=== PATIENT | female | born 1965 | race Caucasian/White ===

== ENCOUNTER 2022-10-31 17:37 | Emergency (ER) | payer OTHER, SELFPAY ==
--- NOTE | ~2022-10-31 | CT_ITS ---
EXAMINATION: CT HEAD WITHOUT CONTRAST CLINICAL INFORMATION: Weakness, speech difficulty, confusion. COMPARISON: None TECHNIQUE: Contiguous axial imaging was performed from the skull base to vertex without intravenous administration of contrast. This CT examination was performed using dose optimization techniques as appropriate, variously including the following: *Automated exposure control *Adjustment of mA and/or kV according to patient size (this includes techniques or standardized protocols for targeted exams where dose is matched to indication/reason for exam; i.e. extremities or head) *Use of iterative reconstruction technique DLP: 576 mGy-cm FINDINGS: There is no evidence of acute intracranial hemorrhage or edematous territorial infarction. A few foci of hypoattenuation in the periventricular and deep white matter are consistent with mild microangiopathy. Wei-white matter differentiation is preserved. Proportional prominence of the ventricles and sulcal spaces. No evidence for obstructive hydrocephalus. No abnormal mass effect or midline shift. No extra-axial fluid collections. No acute soft tissue or osseous abnormalities. The mastoid air cells and paranasal sinuses are clear. CT/CT head/brain wo IV con IMPRESSION: No evidence of acute intracranial hemorrhage or edematous territorial infarction.
[2022-10-31 17:39] VITALS: BP 144/96; PULSE 89; RESP 18; TEMP 36.7; O2SAT 97; BMI 29.1
--- NOTE | 2022-10-31 17:39 | ED_ITS ---
HPI - Neuro Symptoms/Deficit General Chief Complaint: Neuro Symptoms/Deficit <Rosangela Pedroza NP - Last Filed: 11/06/22 11:09> Stated Complaint: R/O TIA? Sent by Primary <Rosangela Pedroza NP - Last Filed: 11/06/22 11:09> Time Seen by Provider: 10/31/22 20:22 <Rosangela Pedroza NP - Last Filed: 11/06/22 11:09> Source: patient <Manuel Patel MD - Last Filed: 10/31/22 21:06> Mode of arrival: ambulatory <Manuel Patel MD - Last Filed: 10/31/22 21:06> Limitations: no limitations <Manuel Patel MD - Last Filed: 10/31/22 21:06> History of Present Illness HPI Narrative: 57-year-old female with history of hypertension presents with 3 days of difficulty concentrating, confusion, word-finding difficulties. Her symptoms have been intermittent. At times her symptoms have been described as severe specifically 2 days ago. There is no clear relieving or exacerbating features. She denies any headache, vision changes. She has chronic right upper extremity numbness and tingling from a known spinal stenosis from which she has had 3 injections but that has not significantly changed. She does get occasional weakness associated with that as well. She denies any new focal neurologic deficits. She does report a significant amount of stress at work where their shortage is in colleagues, stress at home where her home is being sold, she has a care provider. Her symptoms are also associated with some anxiety but anxiety is in SOB causing her symptoms. She has never had such symptoms before. Patient denies any fevers, chills, nausea, vomiting, diarrhea, urinary complaints, chest pain or shortness of breath. <Manuel Patel MD - Last Filed: 10/31/22 21:06> Related Data Home Medications: Previous Rx's Medication Instructions Recorded hydroxyzine HCl 25 mg tablet 25 mg PO TID PRN anxiety #14 tabs 10/31/22 <Rosangela Pedroza NP - Last Filed: 11/06/22 11:09> Allergies/Adverse Reactions: Allergies Allergy/AdvReac Type Severity Reaction Status Date / Time clindamycin [CLINDAMYCIN] Allergy Unknown HIVES Verified 10/31/22 17:39 levofloxacin [From LEVAQUIN] Allergy Unknown UNKNOWN Verified 10/31/22 17:39 zolpidem [ZOLPIDEM] Allergy Unknown UNKNOWN Verified 10/31/22 17:39 amlodipine [From NORVASC] AdvReac Unknown COUGH, Verified 10/31/22 17:39 WATER RETENTION <Rosangela Pedroza NP - Last Filed: 11/06/22 11:09> [facility] Social History Social History: Social History Advance Directives: Yes Advance Directives Information Provided: No Advance Directives on File: No <Rosangela Pedroza NP - Last Filed: 11/06/22 11:09> Physical Exam Vital Signs: Vital Signs: Last Vital Signs Temp 98.0 F 10/31/22 17:39 Pulse 79 10/31/22 20:26 Resp 16 10/31/22 20:26 BP 159/76 H 10/31/22 20:26 Pulse Ox 98 10/31/22 20:26 O2 Del Method Room Air 10/31/22 20:26 BMI result Body Mass Index 29.1 <Rosangela Pedroza NP - Last Filed: 11/06/22 11:09> Vital Signs: Last Vital Signs Temp 98.0 F 10/31/22 17:39 Pulse 79 10/31/22 20:26 Resp 16 10/31/22 20:26 BP 159/76 H 10/31/22 20:26 Pulse Ox 98 10/31/22 20:26 O2 Del Method Room Air 10/31/22 20:26 BMI result Body Mass Index 29.1 <Manuel Patel MD - Last Filed: 10/31/22 21:06> GEN: Well developed, no acute distress, alert, oriented HEENT: Normocephalic, atraumatic, normal external ears, nose appears normal, no oropharyngeal edema or exudates Eyes: Normal to appearance Neck: Supple, no lymphadenopathy Respiratory: Talks in complete sentences, no respiratory distress, clear to auscultation bilaterally Cardiovascular: Regular rate and rhythm, no murmurs rubs or gallops Abdomen: Soft, nontender, nondistended, no guarding, no rebound Back: No CVA tenderness Extremities: No clubbing cyanosis or edema Neurologic: No focal neurologic deficits, cranial nerves 2-12 intact, strength is 5/5 bilaterally, gait normal, negative pronator drift, no word-finding difficulties Skin: No rash <Manuel Patel MD - Last Filed: 10/31/22 21:06> Course Course Course Narrative: This is a rapid medical exam. Deferred additional HPI, ROS, PE to primary provider. 57 yo female with history of anxiety, depression, HTN, HLD here w/ reports of right hand weakness, feels confused, difficulty with expressing her words since Friday. Will obtain labs, CT head, EKG, POC, covid screen. VSS <Rosangela Pedroza NP - Last Filed: 11/06/22 11:09> Reevaluation(s) Reevaluation #1: patient has f/u with PMD next week, discussed results and plan <Manuel Patel MD - Last Filed: 10/31/22 21:06> Time: 21:06 <Manuel Patel MD - Last Filed: 10/31/22 21:06> Medical Decision Making Medical Decision Making MDM Narrative: 57-year-old female presents with a constellation of symptoms including word-finding difficulties, concentration problems, confusion. Her examination is nonfocal. She is slightly hypertensive but does have a history of hypertension. She denies any chest pain, shortness of breath or other systemic symptoms. Patient does report a significant amount of stress in her life. Patient has never had symptoms similar to this in the past. A broad differential diagnosis could include stress, anxiety, TIA, CVA, glycemic related issue, thyroid dysfunction. Patient will have a CT scan of the head, EKG, laboratory analysis and re-evaluation. <Manuel Patel MD - Last Filed: 10/31/22 21:06> Differential Diagnosis Differential Diagnoses: The differential diagnosis associated with the presentation includes (Confusional state, anxiety, depression, stress, adjustment reaction, mood disorder, TIA, CVA, Lyme disease) <Manuel Patel MD - Last Filed: 10/31/22 21:06> Brief confusional state <Manuel Patel MD - Last Filed: 10/31/22 21:06> Admission/Observation Consideration of admission/observation: Escalation of care including admission/observation considered <Manuel Patel MD - Last Filed: 10/31/22 21:06> Lab Data [facility] Lab Attestation statement: I reviewed the patient's lab results. <Manuel Patel MD - Last Filed: 10/31/22 21:06> Result Diagrams: 10/31/22 18:05 10/31/22 18:05 <Rosangela Pedroza NP - Last Filed: 11/06/22 11:09> Labs: Lab Results 10/31/22 10/31/22 10/31/22 Range/Units 18:05 18:05 18:05 WBC 7.7 (4.8-10.8) X10*3/uL RBC 5.15 (4.20-5.50) X10*6/uL Hgb 14.7 (12.0-16.0) g/dl Hct 44.0 (37.0-47.0) % MCV 85.4 (80.0-98.0) fL MCH 28.5 (27.0-33.0) pg MCHC 33.4 (31.0-35.0) g/dl RDW 13.7 (11.0-16.0) % Plt Count 319 (160-400) X10*3/uL MPV 11.9 (9.4-12.3) fL Immature Gran % (Auto) 0.3 (0.0-0.4) % Neut % (Auto) 57.0 (45-73) % Lymph % (Auto) 34.4 (20-40) % Winston % (Auto) 6.1 (2-11) % Eos % (Auto) 1.6 (0-4) % Baso % (Auto) 0.6 (0-2) % Lymph # (Auto) 2.7 (1.2-4.9) X10*3/uL Winston # (Auto) 0.5 (0.1-1.2) X10*3/uL Eos # (Auto) 0.1 (0.0-0.4) X10*3/uL Baso # (Auto) 0.1 (0.0-0.2) X10*3/uL Abs Immat Gran (auto) 0.02 (0.00-0.03) X10*3/uL Absolute Neuts (auto) 4.4 (2.0-8.3) x10*3/uL Absolute Nucleated RBC 0.000 (0.0-0.012) X10*3/uL Nucleated RBC % (auto) 0.0 (0.0-0.2) /100WBC PT (10.0-13.1) SEC INR (0.9-1.1) Sodium 139 (135-145) mmol/L Potassium 3.4 (3.3-5.1) mmol/L Chloride 103 (96-108) mmol/L Carbon Dioxide 27 (22-29) mmol/L Anion Gap 12 (12-20) BUN 23 H (9-16) mg/dL Creatinine 0.83 (0.5-1.4) mg/dL Estim Creat Clear Calc 83.5 Estimated GFR > 60 Random Glucose 96 (60-115) mg/dL Calcium 9.2 (8.4-10.2) mg/dL Magnesium 2.1 (1.6-2.6) mg/dL Total Bilirubin 0.4 (0.0-1.0) mg/dL Direct Bilirubin 0.1 (0.0-0.5) mg/dL AST 19 (5-31) U/L ALT 18 (0-31) U/L Alkaline Phosphatase 76 (39-117) U/L Troponin I High Sens < 2.7 (<3.5-17.0) ng/L Total Protein 7.0 (6.5-8.0) g/dL Albumin 4.1 (3.5-5.0) g/dL COVID-19 (LISA) (Negative) COVID-19 Clin Com 10/31/22 10/31/22 Range/Units 18:05 18:05 WBC (4.8-10.8) X10*3/uL RBC (4.20-5.50) X10*6/uL Hgb (12.0-16.0) g/dl Hct (37.0-47.0) % MCV (80.0-98.0) fL MCH (27.0-33.0) pg MCHC (31.0-35.0) g/dl RDW (11.0-16.0) % Plt Count (160-400) X10*3/uL MPV (9.4-12.3) fL Immature Gran % (Auto) (0.0-0.4) % Neut % (Auto) (45-73) % Lymph % (Auto) (20-40) % Winston % (Auto) (2-11) % Eos % (Auto) (0-4) % Baso % (Auto) (0-2) % Lymph # (Auto) (1.2-4.9) X10*3/uL Winston # (Auto) (0.1-1.2) X10*3/uL Eos # (Auto) (0.0-0.4) X10*3/uL Baso # (Auto) (0.0-0.2) X10*3/uL Abs Immat Gran (auto) (0.00-0.03) X10*3/uL Absolute Neuts (auto) (2.0-8.3) x10*3/uL Absolute Nucleated RBC (0.0-0.012) X10*3/uL Nucleated RBC % (auto) (0.0-0.2) /100WBC PT 10.3 (10.0-13.1) SEC INR 0.9 (0.9-1.1) Sodium (135-145) mmol/L Potassium (3.3-5.1) mmol/L Chloride (96-108) mmol/L Carbon Dioxide (22-29) mmol/L Anion Gap (12-20) BUN (9-16) mg/dL Creatinine (0.5-1.4) mg/dL Estim Creat Clear Calc Estimated GFR Random Glucose (60-115) mg/dL Calcium (8.4-10.2) mg/dL Magnesium (1.6-2.6) mg/dL Total Bilirubin (0.0-1.0) mg/dL Direct Bilirubin (0.0-0.5) mg/dL AST (5-31) U/L ALT (0-31) U/L Alkaline Phosphatase (39-117) U/L Troponin I High Sens (<3.5-17.0) ng/L Total Protein (6.5-8.0) g/dL Albumin (3.5-5.0) g/dL COVID-19 (LISA) Negative (Negative) COVID-19 Clin Com See Note <Rosangela Pedroza NP - Last Filed: 11/06/22 11:09> Lab Results 10/31/22 10/31/22 10/31/22 Range/Units 18:05 18:05 18:05 WBC 7.7 (4.8-10.8) X10*3/uL RBC 5.15 (4.20-5.50) X10*6/uL Hgb 14.7 (12.0-16.0) g/dl Hct 44.0 (37.0-47.0) % MCV 85.4 (80.0-98.0) fL MCH 28.5 (27.0-33.0) pg MCHC 33.4 (31.0-35.0) g/dl RDW 13.7 (11.0-16.0) % Plt Count 319 (160-400) X10*3/uL MPV 11.9 (9.4-12.3) fL Immature Gran % (Auto) 0.3 (0.0-0.4) % Neut % (Auto) 57.0 (45-73) % Lymph % (Auto) 34.4 (20-40) % Winston % (Auto) 6.1 (2-11) % Eos % (Auto) 1.6 (0-4) % Baso % (Auto) 0.6 (0-2) % Lymph # (Auto) 2.7 (1.2-4.9) X10*3/uL Winston # (Auto) 0.5 (0.1-1.2) X10*3/uL Eos # (Auto) 0.1 (0.0-0.4) X10*3/uL Baso # (Auto) 0.1 (0.0-0.2) X10*3/uL Abs Immat Gran (auto) 0.02 (0.00-0.03) X10*3/uL Absolute Neuts (auto) 4.4 (2.0-8.3) x10*3/uL Absolute Nucleated RBC 0.000 (0.0-0.012) X10*3/uL Nucleated RBC % (auto) 0.0 (0.0-0.2) /100WBC PT (10.0-13.1) SEC INR (0.9-1.1) Sodium 139 (135-145) mmol/L Potassium 3.4 (3.3-5.1) mmol/L Chloride 103 (96-108) mmol/L Carbon Dioxide 27 (22-29) mmol/L Anion Gap 12 (12-20) BUN 23 H (9-16) mg/dL Creatinine 0.83 (0.5-1.4) mg/dL Estim Creat Clear Calc 83.5 Estimated GFR > 60 Random Glucose 96 (60-115) mg/dL Calcium 9.2 (8.4-10.2) mg/dL Magnesium 2.1 (1.6-2.6) mg/dL Total Bilirubin 0.4 (0.0-1.0) mg/dL Direct Bilirubin 0.1 (0.0-0.5) mg/dL AST 19 (5-31) U/L ALT 18 (0-31) U/L Alkaline Phosphatase 76 (39-117) U/L Troponin I High Sens < 2.7 (<3.5-17.0) ng/L Total Protein 7.0 (6.5-8.0) g/dL Albumin 4.1 (3.5-5.0) g/dL COVID-19 (LISA) (Negative) COVID-19 Clin Com 10/31/22 10/31/22 Range/Units 18:05 18:05 WBC (4.8-10.8) X10*3/uL RBC (4.20-5.50) X10*6/uL Hgb (12.0-16.0) g/dl Hct (37.0-47.0) % MCV (80.0-98.0) fL MCH (27.0-33.0) pg MCHC (31.0-35.0) g/dl RDW (11.0-16.0) % Plt Count (160-400) X10*3/uL MPV (9.4-12.3) fL Immature Gran % (Auto) (0.0-0.4) % Neut % (Auto) (45-73) % Lymph % (Auto) (20-40) % Winston % (Auto) (2-11) % Eos % (Auto) (0-4) % Baso % (Auto) (0-2) % Lymph # (Auto) (1.2-4.9) X10*3/uL Winston # (Auto) (0.1-1.2) X10*3/uL Eos # (Auto) (0.0-0.4) X10*3/uL Baso # (Auto) (0.0-0.2) X10*3/uL Abs Immat Gran (auto) (0.00-0.03) X10*3/uL Absolute Neuts (auto) (2.0-8.3) x10*3/uL Absolute Nucleated RBC (0.0-0.012) X10*3/uL Nucleated RBC % (auto) (0.0-0.2) /100WBC PT 10.3 (10.0-13.1) SEC INR 0.9 (0.9-1.1) Sodium (135-145) mmol/L Potassium (3.3-5.1) mmol/L Chloride (96-108) mmol/L Carbon Dioxide (22-29) mmol/L Anion Gap (12-20) BUN (9-16) mg/dL Creatinine (0.5-1.4) mg/dL Estim Creat Clear Calc Estimated GFR Random Glucose (60-115) mg/dL Calcium (8.4-10.2) mg/dL Magnesium (1.6-2.6) mg/dL Total Bilirubin (0.0-1.0) mg/dL Direct Bilirubin (0.0-0.5) mg/dL AST (5-31) U/L ALT (0-31) U/L Alkaline Phosphatase (39-117) U/L Troponin I High Sens (<3.5-17.0) ng/L Total Protein (6.5-8.0) g/dL Albumin (3.5-5.0) g/dL COVID-19 (LISA) Negative (Negative) COVID-19 Clin Com See Note <Manuel Patel MD - Last Filed: 10/31/22 21:06> Independent Interpretation I performed an independent interpretation of an: EKG (Normal sinus rhythm heart rate 86, no acute ST elevations or depressions, nonspecific T-wave changes noted in lead aVL, V2, normal intervals, no comparison) and CT Scan (CT head no acute intracranial pathology) <Manuel Patel MD - Last Filed: 10/31/22 21:06> Radiology Impression Discussion of test interpretation with radiology: I have reviewed the radiologist's reading. ( CT/CT head/brain wo IV con IMPRESSION: No evidence of acute intracranial hemorrhage or edematous territorial infarction. Dictated By:Sivakumar Flores By:<Electronically signed by Faith Flores in OV>10/31/22 193) <Manuel Patel MD - Last Filed: 10/31/22 21:06> Prescription Management I considered prescription management with: Other (Anxiety medication) <Manuel Patel MD - Last Filed: 10/31/22 21:06> Chronic Conditions Patient?s care impacted by: Hypertension <Manuel Patel MD - Last Filed: 10/31/22 21:06> Discharge Plan Discharge Clinical Impression: Confusion, Stress and adjustment reaction <Rosangela Pedroza NP - Last Filed: 11/06/22 11:09> Patient Disposition: Home, Self-Care <Rosangela Pedroza NP - Last Filed: 11/06/22 11:09> Instructions: Stress (ED) <Rosangela Pedroza NP - Last Filed: 11/06/22 11:09> Prescriptions: New hydroxyzine HCl 25 mg tablet 25 mg PO TID PRN (Reason: anxiety) Qty: 14 0RF <Rosangela Pedroza NP - Last Filed: 11/06/22 11:09> Referrals: Lizette Liang MD [Primary Care Provider] - 1 week <Rosangela Pedroza NP - Last Filed: 11/06/22 11:09> Interventions: ED Discharge Assessment Last Done: 10/31/22 21:26 <Rosangela Pedroza NP - Last Filed: 11/06/22 11:09> Discharge Date/Time: 10/31/22 21:28 <Rosangela Pedroza NP - Last Filed: 11/06/22 11:09>
--- NOTE | 2022-10-31 17:43 | ECG_ITS ---
Test Reason : AMS Blood Pressure : / mmHG Vent. Rate : 086 BPM Atrial Rate : 086 BPM P-R Int : 166 ms QRS Dur : 076 ms QT Int : 340 ms P-R-T Axes : 049 009 046 degrees QTc Int : 406 ms Normal sinus rhythm Possible Left atrial enlargement Possible Septal infarct , age undetermined Abnormal ECG No previous ECGs available Referred By: Rosangela Pedroza Electronically Signed By:DINORA SIN MD
[2022-10-31 18:10] LABS: MANUAL DIFF FLAG NO
[2022-10-31 18:17] LABS: INTERNATIONAL NORM RATIO 0.9 (0.9-1.1); Prothrombin Time 10.3 SEC (10.0-13.1)
[2022-10-31 18:25] LABS: Basophils Absolute Auto 0.1 X10*3/uL (0.0-0.2); Basophils Percent Auto 0.6 % (0-2); Eosinophils Absolute Auto 0.1 X10*3/uL (0.0-0.4); Eosinophils Percent Auto 1.6 % (0-4); Hemoglobin 14.7 g/dl (12.0-16.0); Imm Gran Abs Auto 0.02 X10*3/uL (0.00-0.03); Imm Gran Pct Auto 0.3 % (0.0-0.4); Lymphocytes Absolute Auto 2.7 X10*3/uL (1.2-4.9); Lymphocytes Percent Auto 34.4 % (20-40); Mean Corpuscular HGB Conc 33.4 g/dl (31.0-35.0); Mean Corpuscular Hemoglobin 28.5 pg (27.0-33.0); Mean Corpuscular Volume 85.4 fL (80.0-98.0); Mean Platelet Volume 11.9 fL (9.4-12.3); Monocytes Absolute Auto 0.5 X10*3/uL (0.1-1.2); Monocytes Percent Auto 6.1 % (2-11); Neutrophils Absolute Auto 4.4 x10*3/uL (2.0-8.3); Platelet Count 319 X10*3/uL (160-400); Red Blood Count 5.15 X10*6/uL (4.20-5.50); Red Cell Distribution Width 13.7 % (11.0-16.0); White Blood Count 7.7 X10*3/uL (4.8-10.8)
[2022-10-31 18:27] LABS: Alanine Aminotransferase 18 U/L (0-31); Albumin Level 4.1 g/dL (3.5-5.0); Alkaline Phosphatase 76 U/L (39-117); Anion Gap 12 (12-20); Aspartate Amino Transferase 19 U/L (5-31); Bilirubin Direct 0.1 mg/dL (0.0-0.5); Bilirubin Total 0.4 mg/dL (0.0-1.0); Blood Urea Nitrogen 23 mg/dL (9-16); Calcium 9.2 mg/dL (8.4-10.2); Carbon Dioxide 27 mmol/L (22-29); Chloride 103 mmol/L (96-108); Creatinine Clr Calc Pharmacy 83.5; Estimated Glomerular Filt Rate > 60; Glucose Random 96 mg/dL (60-115); Magnesium 2.1 mg/dL (1.6-2.6); Potassium 3.4 mmol/L (3.3-5.1); Sodium 139 mmol/L (135-145)
[2022-10-31 18:32] LABS: COVID-19 Test Negative (Negative); IDNOW Serial# BCCEAD1C
[2022-10-31 18:42] LABS: Troponin-I High Sensitivity < 2.7 ng/L (<3.5-17.0)
[2022-10-31 20:26] VITALS: BP 159/76; PULSE 79; RESP 16; O2SAT 98
== END 2022-10-31 21:28 | disposition home or self-care (01) ==
PROVIDERS: Nurse Practitioner Family; Emergency Provider Emergency Medicine; PCP Internal Medicine
DX: R41.0 Disorientation, unspecified (principal); F43.9 Reaction to severe stress, unspecified; R51.9 Headache, unspecified; R20.0 Anesthesia of skin; R06.02 Shortness of breath; F41.9 Anxiety disorder, unspecified; Z20.822 Contact with and (suspected) exposure to COVID-19; Z20.828 Contact with and (suspected) exposure to other viral communicable diseases; Z79.899 Other long term (current) drug therapy
CPT/HCPCS: 36415; 70450; 80048; 80076; 83735; 84484; 85025; 85610; 87635; 93005; 99284

== ENCOUNTER 2025-04-22 13:13 | Outpatient (AMB) | payer OTHER, SELFPAY ==
[2025-04-22 13:17] VITALS: BP 112/64; PULSE 68; TEMP 36.8; O2SAT 95
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
--- OUTSIDE RECORDS SUMMARY | 2025-04-22 13:39 | XMS_ITS | Encounter Summary ---
Author Organization [facility] Address [address] [place] [address] [place] [phone] Phone Care Team Providers Care Pinsetter Mechanic Automatic Name Role Phone Lizette Liang DO Primary Care Provider [phone] Yamilex Sutherland PA-C Primary Care Provider Tonja Maloney NP Primary Care Provider [phone] Encounter Details Date Type Department Care Team (Latest Contact Info) Description 12/01/2017 Transcribe Orders [facility] PFT Lab [address] [place] [address] Lizette Liang, DO [address] [place] [address] [email or web address] Shortness of breath (Primary Dx) Social [...] Description 05/03/2025 11:00 AM EDT Office Visit [facility] General Surgical Care [address] [place] [address] Jerardo Painting CNP 15 [facility], 2nd [place] [address] documented as of this encounter Results * Pulmonary Function Test Reason for Exam: Dyspnea/Shortness of Breath; Type of PFT Test: Spirometry with bronchodilator; Performing Location: [facility] (12/03/2017 10:14 AM EDT) FEV1 liters FVC liters FEV1/FVC liters TLC liters DLCO ml/mmHg sec Anatomical Region Laterality Modality Other Impressions 12/03/2017 10:14 AM EDT METHACHOLINE CHALLENGE TESTING A standard methacholine challenge study was performed according to ATS criteria on this 52 y.o. year-old female for evaluation of dyspnea. TECHNIQUE: After measurements of baseline spirometry, serial spirometry measurements were performed with the intervening administration of serially increasing doses of methacholine. RESULTS: Baseline spirometry is mildly abnormal with an FEV1/FVC ratio of 69% but a normal FEV1 of 2.66 L or 98% predicted; mid flows and peak flows are mildly impaired. After the administration of serially increasing doses of methacholine, PA-C 20 is technically reached a dose of 10 mg/mL with is a 31% decline in FEV1 compared to baseline, though at 2.5 mg/mL there is a 19% decline in FEV1 compared to baseline. Spirometry performed in recovery reveals normalization of the FEV1/FVC ratio at 78%, modest improvements in mid flows and peak flows, and is otherwise grossly unchanged compared to baseline. IMPRESSION: This represents a borderline methacholine challenge study with a PC 2 0 of 10 mg/mL, though borderline positive at 2.5 mg/mL. In the setting of mild airflow obstruction seen in baseline spirometry measurements, these results are likely consistent with a diagnosis of asthma in this patient. us Provider Not In System PhD PFT ORDERABLES Final Result documented in this encounter Visit Diagnoses Diagnosis Shortness of breath- Primary Shortness of breath documented in this encounter Additional Health Concerns Infection Onset Date Last Indicated Resolved Time CoV-Exposed Comment:Recent close contact 07/11/2020 07/11/2020 07/25/2020 1:24 AM EST documented as of this encounter Care Teams Pinsetter Mechanic Automatic Relationship Specialty Start Date End Date Lizette Liang DO [address] [place] [address] PCP - General Internal Medicine 10/29/17 05/08/23 Yamilex Sutherland PA-C [address] [place] [address] [email or web address] PCP - General Physician Search Marketing Coordinator 05/09/23 03/20/25 Tonja Maloney NP [address] [place] [address] PCP - General Nurse Practitioner 03/21/25 documented as of this encounter Additional Source Comments The information contained in this document represents components of the legal health record. It is not the complete legal health record.[facility]
--- OUTSIDE RECORDS SUMMARY | 2025-04-22 13:39 | XMS_ITS | Encounter Summary ---
Author Organization [facility] Address [address] [place] [address] [place] [address] Phone Care Team Providers Care Plate Grinder Name Role Phone Lizette Liang DO Primary Care Provider [phone] Yamilex Sutherland PA-C Primary Care Provider Tonja Maloney NP Primary Care Provider [phone] Encounter Details Date Type Department Care Team (Latest Contact Info) Description 07/11/2020 Transcribe Orders Virtual Department [address] [place] [address] Lizette Liang, DO [address] [place] [address] [place] [address] [email or web address] Exposure to SARS-associated coronavirus (Primary Dx) Social History Tobacco Use Types Packs/Day Years Used Date Smoking Tobacco: Former Cigarettes Q uit: 1983 Smokeless Tobacco: Never Alcohol Use Standard Drinks/Week Comments Yes 0 (1 standard drink = 0.6 oz pur e alcohol) rarely Comments Unknown Sex and Gender Information Value Date Recorded Sex Assigned at Not on file Legal Sex Female 9:41 PM EDT Gender Identity Not on file Sexual Orientation Not on file documented as of this encounter Plan of Treatment Upcoming Encounters Date Type Department Care Team (Late st Contact Info) Description 05/03/2025 11:00 AM EDT Office Visit [facility] General Surgical Care [address] [place] [address] Jerardo Painting, PRINCIPAL NETWORK ARCHITECT 15 [facility], [address]nd [place] [address] [email or web address] documented as of this encounter Results * COVID-19 PCR Order (07/11/2020 1:56 PM EST) COVID Testing Status Specimen received in analyzing lab. [facility] Symptomatic? NO [facility] Other 07/11/2020 1:56 PM EST 07/11/2020 2:47 PM EST us Lizette Liang DO BODY FLUIDS AND STOOLS ORDERAB LES Final Result [facility] [address] [place] [address] [facility] [address] [place] [address] documented in this encounter Visit Diagnoses Diagnosis Exposure to SARS-associated coronavirus- Primary documented in this encounter Additional Health Concerns Infection Onset Date Last Indicated Resolved Time CoV-Exposed Comment:Recent close contact 07/11/2020 07/11/2020 07/25/2020 1:24 AM EST documented as of this encounter Care Teams Plate Grinder Relationship Specialty Start Date End Date Lizette Liang DO [address] [place] [address] PCP - General Internal Medicine 10/29/17 05/08/23 Yamilex Sutherland PA-C [address] [place] [address] [email or web address] PCP - General Physician High School Chemistry Teacher 05/09/23 03/20/25 Tonja Maloney NP [address] [place] [address] PCP - General Nurse Practitioner 03/21/25 documented as of this encounter Additional Source Comments The information contained in this document represents components of the legal health record. It is not the complete legal health record.[facility]
--- OUTSIDE RECORDS SUMMARY | 2025-04-22 13:39 | XMS_ITS | Encounter Summary ---
Author Organization [facility] Address [address] [place] [address] [place] [address] Phone Care Team Providers Care Resistance Welder Name Role Phone Lizette Liang DO Primary Care Provider [phone] Yamilex Sutherland PA-C Primary Care Provider Tonja Maloney NP Primary Care Provider Encounter Details Date Type Department Care Team (Late st Contact Info) Description 04/22/2019 Procedure Pass [address] [place] [address] Social History Tobacco Use Types Packs/Day Years [...] Description 05/03/2025 11:00 AM EDT Office Visit [facility] General Surgical Care [address] [place] [address] Jerardo Painting, DAM ATTENDANT 15 [facility], 2nd [place] [address] documented as of this encounter Visit Diagnoses Not on filedocumented in this encounter Additional Health Concerns Infection Onset Date Last Indicated Resolved Time CoV-Exposed Comment:Recent close contact 07/11/2020 07/11/2020 07/25/2020 1:24 AM EST documented as of this encounter Care Teams Resistance Welder Relationship Specialty Start Date End Date Lizette Liang DO [address] [place] [address] PCP - General Internal Medicine 10/29/17 05/08/23 Yamilex Sutherland PA-C [address] [place] [address] [email or web address] PCP - General Physician Rn Gastroenterology 05/09/23 03/20/25 Tonja Maloney NP [address] [place] [address] PCP - General Nurse Practitioner 03/21/25 documented as of this encounter Additional Source Comments The information contained in this document represents components of the legal health record. It is not the complete legal health record.[facility]
--- OUTSIDE RECORDS SUMMARY | 2025-04-22 13:39 | XMS_ITS | Patient Health Record ---
Author Organization [facility] Address [address] [place] [address] Care Team Providers Care Rehabilitation Program Coordinator Name Role Phone Azul Lizette Primary Care Provider Beverley Vital Unavailable [phone] Allergies Allergen (clinical drug ingredient) Drug/Non Drug Allergy documented on EMR Reaction Allergy Type Onset Date Status duloxetine Cymbalta confusion Drug Allergy Active Levaquin nausea, vomiting, upset stomach Drug Allergy Active lansoprazole Prevacid dizziness Drug Allergy Acti ve pantoprazole Protonix dizziness Drug Allergy Acti ve amlodipine Amlodipine dizziness Drug Allergy Activ e clindamycin Clindamycin hives Drug Allergy Act vijaya gabapentin Gabapentin hallucinations, bad thoughts Drug Allergy Active Latex Latex rash Allergy Active losartan Losartan confusion Drug Allergy Active omeprazole Omeprazole dizziness Drug Allergy Activ e zolpidem Zolpidem disassociation, amnesia Drug Allergy Active Reason For Referral No Information Medications Medication SIG (Take, Route, Frequency, Duration) Notes Start Date End Date Status Amoxicillin 875 MG 1 tablet Orally Twic e a day; Duration: 5 day(s) Unknown cloNIDine HCl 0.2 MG 1 tablet Orally weekly Active Bimatoprost 0.03 % 1 application along upper eyelid margin at base of eyelashes Externally Once a day Unknown Flovent HFA 220 MCG/ACT 2 puffs Inhalati on Twice a day Active Desonide 0.05 % 1 application Externally Twice a day Unknown LORazepam 1 MG 1 tablet at bedtime as needed Orally Once a day Active Fluticasone Propionate 0.05 % 1 application Externally Once a day; Duration: 14 day(s) Unknown Xyzal Active oxyCODONE HCl 5 MG 1 tablet as needed Orally every 6 hrs Unknown Acetaminophen 500 MG 1 capsule as needed Orally every 6 hrs Unknown Levocetirizine Dihydrochloride 5 MG 1 tablet in the evening Orally Once a day; Duration: 30 day(s) Active Fluticasone Propionate 50 MCG/ACT 1 spray in each nostril Nasally Once a day; Duration: 30 day(s) Unknown traMADol HCl 50 MG 1 tablet as needed Orally Once a day Active Ibuprofen 600 MG 1 tablet with food o r milk as needed Orally Three times a day Unknown Triamterene-HCTZ 75-50 MG 1 tablet in morning Orally Once a day; Duration: 30 day(s) Active Ondansetron 4 MG 1 tablet on the tong ue and allow to dissolve Orally Once a day; Duration: 30 day(s) Unknown Tretinoin 0.025 % 1 application in the evening to face Externally Once a day Active Immunizations Vaccine Route Administration Date Status Comme nts Influenza Unknown 05/21/2021 Administered COVID-19 Moderna Vaccine Unknown 08/31/2020 Administered 1st Dose: 2020 Social History Tobacco Use: Social History Observation Description Date Details (start date - stop date) Former Smoker NA - 07/21/1998 Tobacco Use/Smoking Question Answer Notes Are you a: former smoker When did you stop smoking? 07/21/1998 Additional Findings: Tobacco Non-User Ex-cigaret te smoker Alcohol Screen Question Answer Notes Did you have a drink contain ing alcohol in the past year? Yes How often did you have a dri nk containing alcohol in the past year? Monthly or less (1 point) Points 1 Interpretation Negative Tobacco use other than smoking: Question Answer Notes Are you an other tobacco user? No Plan Of Treatment Pending Test Test Name Order Date X ray : Foot, right 3V 12/26/2021 Insurance Providers Payer Name Payer Address Payer Phone Subscriber Number Group Number Insured Name Patient Relationship to Insured Coverage Start Date Coverage End Date [facility] [address] [facility] ROBERT[place] CAR[place] [address] [id number] Naty Martinez Self - patient is the insured Medical (General) History Medical History History ICD Code hyperlipidemia Depression Anxiety Panic disorder Hypertension, benign asthma raynauds disease Basal cell cancer Chicken pox Surgical History Surgery Date(Month/Year) mohs surgery 3/16/22 reconstruction 10/04/21
--- OUTSIDE RECORDS SUMMARY | 2025-04-22 13:39 | XMS_ITS | Encounter Summary ---
Author Organization [facility] Address [address] [facility] [address] [place] [address] Phone Care Team Providers Care Litigation Assistant Name Role Phone Haider Tonja Rosmery OSBORNE Primary Care Provider [phone] Encounter Details Date Type Department Care Team (Late st Contact Info) Description 03/21/2025 Procedure Pass [facility], Ct Scan - [address] [address] Social History Tobacco Use Types Packs/Day Years Used Date Smoking Tobacco: Former Cigarettes Q uit: 1983 Smokeless Tobacco: Never Alcohol Use Standard Drinks/Week Comments Yes 0 (1 standard drink = 0.6 oz pur e alcohol) rarely Education Answer Date Recorded Are you interested in more education? Not on jono e 11/15/2022 Are you concerned about learning? Not on file 11/15/2022 No 11/15/2022 No 11/15/2022 Food Answer Date Recorded Within the past 6 months we worried whether our food would run out before we got money to buy more. Never True 03/21/2025 Within the past 6 months the food we bought just didn't last and we didn't have enough money to get more. Never True Residential Stability Answer Date Recor ded What is your housing situation today? I have conchis sing 03/21/2025 How many times have you move d in the past 12 months? Zero (I did not move) 03/21/2025 Paying for Meds Answer Date Recorded Do you have trouble paying for medicines? No 03/21/2025 Paying Utility Bills Answer Date Record ed Do you have trouble paying your heating or elect ricity bill? No 03/21/2025 Transportation Answer Date Recorded Has the lack of transportati on kept you from medical appointments or from getting medications? No 03/21/2025 Digital Access Answer Date Recorded No 03/21/2025 Yes 03/21/2025 Do you have reliable internet access at home? Ye s 03/21/2025 Do you have a device (e.g., phone, tablet, computer) with a working camera? Yes 03/21/2025 Intimate Partner Violence Answer Date R ecorded Are you denied basic needs s uch as food, clothing, or medical care? No 03/21/2025 In the past 12 months have y ou been in a relationship with a person who hurts, threatens, or tries to control you? No 03/21/2025 Are you denied basic needs s uch as food, clothing, or medical care? No 03/21/2025 In the past 12 months have y ou been in a relationship with a person who hurts, threatens, or tries to control you? No 03/21/2025 Comments Unknown Sex and Gender Information Value Date Recorded Sex Assigned at Not on file Legal Sex Female 9:41 PM EDT Gender Identity Not on file Sexual Orientation Not on file documented as of this encounter Functional Status * Calculated C-SSRS Risk Score (Lifetime/Recent) Answer Date of Assessment Author No Risk Indicated 03/21/2025 11:09 AM EDT Arline Dooley RN * [place] Suicide Severity Rating Scale (Screener/Recent Self-Report) Question Answer Date of Assessment Author 1. Wish to be (Past 1 Month) No 03/21/2025 11:09 AM Arline Rock RN 2. Non-Specific Active Suici vasile Thoughts (Past 1 Month) No 03/21/2025 11:09 AM EDT Raven Davila cia, RN 6. Suicidal Behavior (Lifetime) No 11:09 AM Arline Rock RN documented as of this encounter Plan of Treatment Upcoming Encounters Date Type Department Care Team (Late st Contact Info) Description 05/03/2025 11:00 AM EDT [facility] [address] [place] [address] Jerardo Painting, BLINDMAKER [address] [place] [address] 2nd [place] [address] [email or web address] documented as of this encounter Visit Diagnoses Not on filedocumented in this encounter Care Teams Litigation Assistant Relationship Specialty Start Date End Date Tonja Maloney NP [address] [place] [address] PCP - General Nurse Practitioner 03/21/25 documented as of this encounter Additional Source Comments The information contained in this document represents components of the legal health record. It is not the complete legal health record.[facility]
--- OUTSIDE RECORDS SUMMARY | 2025-04-22 13:39 | XMS_ITS | Encounter Summary ---
Author Organization [facility] Address [address] [place] [address] [place] [address] Phone Care Team Providers Care Parachute Packer Name Role Phone Lizette Liang DO Primary Care Provider [phone] Yamilex Sutherland PA-C Primary Care Provider Tonja Maloney NP Primary Care Provider Encounter Details Date Type Department Care Team (Late st Contact Info) Description 04/22/2019 Ancillary Orders [facility] Cardiopulmonary Rehabilitation [address] [place] [address] Maynor Matos, DO [address] [place] [address] [email or web address] Social History Tobacco Use Types Packs/Day Years [...] [facility] General [facility] Care [address] [place] [address] Jerardo Painting, KASSANDRA [address] [facility], 2nd [place] [address] documented as of this encounter Visit Diagnoses Not on filedocumented in this encounter Additional Health Concerns Infection Onset Date Last Indicated Resolved Time CoV-Exposed Comment:Recent close contact 07/11/2020 07/11/2020 07/25/2020 1:24 AM EST documented as of this encounter Care Teams Parachute Packer Relationship Specialty Start Date End Date Lizette Liang DO [address] [place] [address] PCP - General Internal Medicine 10/29/17 05/08/23 Yamilex Sutherland PA-C [address] [place] [address] [email or web address] PCP - General Physician Electrical Hardware Engineer 05/09/23 03/20/25 Tonja Maloney NP [address] [place] [address] PCP - General Nurse Practitioner 03/21/25 documented as of this encounter Additional Source Comments The information contained in this document represents components of the legal health record. It is not the complete legal health record.[facility]
--- OUTSIDE RECORDS SUMMARY | 2025-04-22 13:39 | XMS_ITS | Encounter Summary ---
Author Organization [facility] Address [address] [place] [phone] Phone Care Team Providers Care Tosser Name Role Phone Lizette Liang DO Primary Care Provider [phone] Yamilex Sutherland PA-C Primary Care Provider + [phone] Tonja Maloney NP Primary Care Provider [phone]- [phone] Reason for Referral * MRI/CAT Scan - Closed Specialty Diagnoses / Procedures Referred By Jerry staley Referred To Contact Radiology Diagnoses Cervical radiculopathy Procedures MRI Cervical Spine Maynor Matos DO Phone: tel: fax: [email or web address] Referral ID Status Reason Start Date Expiration Date Visits Re quested Visits Authorized [id number] Closed 04/22/2019 06/21/2019 1 1 Encounter Details Date Type Department Care Team (Latest Contact Info) Description 04/22/2019 Ancillary Orders Virtual Department [address] [place] [address] Maynor Matos DO [address] [place] [address] [email or web address] Cervical radiculopathy Social History Tobacco Use Types Packs/Day Years [...] Description 05/03/2025 11:00 AM EDT Office Visit [facility] General Surgical Care [address] [place] [address] Jerardo Painting, AUDIO PRODUCTION ENGINEER 15 [facility], 2nd [place] [address] [email or web address] documented as of this encounter Results * MRI CERVICAL SPINE (NEURO) FOCUS WITHOUT CONTRAST (05/05/2019 8:59 AM EDT) Anatomical Region Laterality Modality C-spine Magnetic Resonan ce 05/05/2019 8:58 AM EDT Impressions 05/05/2019 9:13 AM EDT Multilevel degenerative disc disease as outlined above most significant at C5-6 in which there is severe bilateral neural foraminal stenosis due to osteophytes. No significant disc herniation or canal stenosis. POS - [id number] Narrative 05/05/2019 9:13 AM EDT HISTORY: Cervical radiculopathy COMPARISON: None. TECHNIQUE: Exam performed on a 1.5 Sahara high-field MRI scanner. Sagittal T1, T2 and STIR, axial T2* gradient echo and 3-D bright fluid sequences were obtained. MRI CERVICAL SPINE FINDINGS: Mild reversal of lordosis at C5-6. Moderate C3-4, C5-6 and C6-7 disc space narrowing and mild C4-5 disc space narrowing. Diffuse disc desiccation. Mild anterior wedging and endplate osteophytes at C5-6. Minimal anterolisthesis of C7. Mild degenerative endplate marrow edema at C5-6. No bone lesions. No cerebellar tonsillar herniation. Spinal cord is normal in signal intensity. Paraspinal soft tissues are normal. C2-3: Normal. C3-4: Mild mild facet arthropathy right greater than left. C4-5: Moderate right facet arthropathy. C5-6: Small generalized disc osteophyte complex with bilateral uncovertebral osteophytes and mild facet arthropathy causing severe neural foraminal stenosis. C6-7: Small generalized disc osteophyte complex and mild facet arthropathy. Bilateral uncovertebral spurring left greater than right. Moderate left neural foraminal stenosis. C7-T1: Mild left facet arthropathy. Otherwise unremarkable. Procedure Note Bryon Soares MD - 05/05/2019 HISTORY: Cervical radiculopathy COMPARISON: None. TECHNIQUE: Exam performed on a 1.5 Sahara high-field MRI scanner. SagittalT1, T2 and STIR, axial T2* gradient echo and 3-D bright fluid sequenceswere obtained. MRI CERVICAL SPINE FINDINGS: Mild reversal of lordosis at C5-6. Moderate C3-4, C5-6 and C6-7 discspace narrowing and mild C4-5 disc space narrowing. Diffuse discdesiccation. Mild anterior wedging and endplate osteophytes at C5-6.Minimal anterolisthesis of C7. Mild degenerative endplate marrow edema atC5-6. No bone lesions. No cerebellar tonsillar herniation. Spinal cordis normal in signal intensity. Paraspinal soft tissues are normal. C2-3: Normal. C3-4: Mild mild facet arthropathy right greater than left. C4-5: Moderate right facet arthropathy. C5-6: Small generalized disc osteophyte complex with bilateraluncovertebral osteophytes and mild facet arthropathy causing severe neuralforaminal stenosis. C6-7: Small generalized disc osteophyte complex and mild facetarthropathy. Bilateral uncovertebral spurring left greater than right.Moderate left neural foraminal stenosis. C7-T1: Mild left facet arthropathy. Otherwise unremarkable. IMPRESSION: Multilevel degenerative disc disease as outlined above most significant atC5-6 in which there is severe bilateral neural foraminal stenosis due toosteophytes. No significant disc herniation or canal stenosis. POS - [id number] Maynor Matos DO IMG MR XSPECIALTY Final Resu lt documented in this encounter Visit Diagnoses Diagnosis Cervical radiculopathy Brachial neuritis or radiculitis nos Cervical radiculopathy Brachial neuritis or radiculitis nos documented in this encounter Additional Health Concerns Infection Onset Date Last Indicated Resolved Time CoV-Exposed Comment:Recent close contact 07/11/2020 07/11/2020 07/25/2020 1:24 AM EST documented as of this encounter Care Teams Tosser Relationship Specialty Start Date End Date Lizette Liang DO [address] [place] [id number] PCP - General Internal Medicine 10/29/17 05/08/23 Yamilex Sutherland PA-C [address] [place] [address] [email or web address] PCP - General Physician Museum Security Chief 05/09/23 03/20/25 Tonja Maloney NP [address] [place] [id number] PCP - General Nurse Practitioner 03/21/25 documented as of this encounter Additional Source Comments The information contained in this document represents components of the legal health record. It is not the complete legal health record.[facility]
--- OUTSIDE RECORDS SUMMARY | 2025-04-22 13:39 | XMS_ITS | Encounter Summary ---
Author Organization [facility] Address [address] [place] [address] [place] [phone] Phone Care Team Providers Care Server Programmer Name Role Phone Haider Tonja Rosmery OSBORNE Primary Care Provider [phone] Encounter Details Date Type Department Care Team (Late st Contact Info) Description 04/12/2025 Procedure Pass OR Admitting Dept - Virtual Department [address] [place] [address] Social History Tobacco Use Types Packs/Day Years Used Date Smoking Tobacco: Former Cigarettes Q uit: 1983 Smokeless Tobacco: Never Alcohol Use Standard Drinks/Week Comments Never 0 (1 standard drink = 0.6 oz pur e alcohol) Education Answer Date Recorded Are you interested [...] as food, clothing, or medical care? No 04/12/2025 In the past 12 months have y ou been in a relationship with a person who hurts, threatens, or tries to control you? No 04/12/2025 Are you denied basic needs s uch as food, clothing, or medical care? No 04/12/2025 In the past 12 months have y ou been in a relationship with a person who hurts, threatens, or tries to control you? No 04/12/2025 Comments No Sex and Gender Information Value Date Recorded Sex Assigned at Not on file Legal Sex Female 9:41 PM EDT Gender Identity Not on file Sexual Orientation Not on file documented as of this encounter Plan of Treatment Upcoming Encounters Date Type Department Care Team (Late st Contact Info) Description 05/03/2025 11:00 AM EDT Office Visit [facility] General Surgical Care [address] [place] [address] Jerardo Painting CNP 15 [facility], [address] [place] [phone] documented as of this encounter Visit Diagnoses Not on filedocumented in this encounter Care Teams Server Programmer Relationship Specialty Start Date End Date Tonja Maloney NP [address] [place] [id number] PCP - General Nurse Practitioner 03/21/25 documented as of this encounter Additional Source Comments The information contained in this document represents components of the legal health record. It is not the complete legal health record.[facility]
--- OUTSIDE RECORDS SUMMARY | 2025-04-22 13:40 | XMS_ITS | Encounter Summary ---
Author Organization [facility] Address [address] [place] [address] [place] [phone] Phone Care Team Providers Care Rainbow Trout Farm Manager Name Role Phone Tonja Maloney NP Primary Care Provider [phone] Reason for Visit * Reason Onset Date Comments Post-op 04/13/2025 Bleeding after c holecystectomy Encounter Details Date Type Department Care Team (Late st Contact Info) Description 04/13/2025 Telephone [facility] General Surgical Care [address] [place] [address] Jerardo Painting, BUS AND SYS INTEGRATION SENIOR MANAGER 15 [facility], 2nd [place] [address] [email or web address] Post-op (Bleeding after cholecystectomy) Social History Tobacco Use Types Packs/Day Years [...] on file documented as of this encounter Progress Notes * Chelsey Avalos RN - 04/13/2025 1:35 PM EDT Called to check in with patient. She will upload picture of incision to [employer] for review. Post opmade for 05/03 * Jerardo Painting CNP - 04/13/2025 8:24 AM EDT Calls to report bleeding from one of her incisions [place] to [place] [facility] [place], gauze was applied to site. When she woke, she removed gauze which stuck a bit and now has some oozing. Advised to lay down, apply pressure to site and ice. Limit getting up and down as this can cause pressure and additional bleeding. Will get Telfa pad to cover and catch any blood, advised not to use tape as this can cause irritation. Ice liberally for the next couple of days. Would like to avoid narcotics, advised okay to alternate Tylenol/Ibuprofen. Advised she will be called later to review post op instructions but that she should call prior with additional concerns. She will not have a ride tomorrow if she needs to be seen, but does have a ride today and Friday. documented in this encounter Plan of Treatment Upcoming Encounters Date Type Department Care Team (Late st Contact Info) Description 05/03/2025 11:00 AM EDT Office Visit [facility] General Surgical Care [address] [place] [address] Jerardo Painting CNP 15 [facility], 2nd [place] [address] [email or web address] documented as of this encounter Visit Diagnoses Not on filedocumented in this encounter Care Teams Rainbow Trout Farm Manager Relationship Specialty Start Date End Date Tonja Maloney NP [address] [place] [phone] PCP - General Nurse Practitioner 03/21/25 documented as of this encounter Additional Source Comments The information contained in this document represents components of the legal health record. It is not the complete legal health record.[facility]
--- OUTSIDE RECORDS SUMMARY | 2025-04-22 13:40 | XMS_ITS | Clinical Summary ---
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 Name Role Phone Tonja Maloney NP Primary Care Provider [phone] Allergies Active Allergy Reactions Criticality Noted Date Comments Amlodipine Dizziness 06/23/2019 Clindamycin Hives 03/28/2025 Duloxetine Mental Status Change 06/23/2019 confusion Divalproex Sodium 03/28/2025 Other Reaction(s): suicidal allergic to bipolar meds Fluoxetine 03/28/2025 Other Reaction(s): suicidal allergic to all SSRI's Gabapentin 03/28/2025 Other Reaction(s): dizziness, bad thoughts, hallucinations, bad thoughts Latex Rash Low 06/23/2019 Levofloxacin GI Upset,Nausea and/ or Vomiting 06/23/2019 Losartan Mental Status Change 06/23/2019 confusion Omeprazole Dizziness 06/23/2019 Other 06/23/2019 All SSRI Lansoprazole Dizziness 06/23/2019 Pantoprazole Dizziness 06/23/2019 Tizanidine Mental Status Change 06/23/2019 Confusion and fainting Zolpidem Mental Status Change 06/23/2019 Disassociation, amnesia Medications cloNIDine (WAWAPNTM-HJU-2 ) 0.1 mg/[address] 1 patch onto the skin once a week. Active fexofenadine (RENETTA) 180 MG tablet Take 180 mg by mouth daily. Active fluticasone propionate (FLOVENT HFA) 220 mcg/actuation inhaler Inhale 1 puff into the lungs 2 (two) times a day. Active LORazepam (ATIVAN) 1 MG tablet Take 1 mg by mouth 2 (two) times a day as needed. Active tretinoin (RETIN-A) 0.05 % cream Apply topically nightly at bedtime. Active triamterene-hyd roCHLOROthiazid e (MAXZIDE-50) 75-50 mg per tablet Take 1 tablet by mouth daily. Active beclomethasone (QVAR REDIHALER) 40 mcg/actuation inhaler Inhale 40 mcg into the lungs. 4 Active magnesium gluconate (MAGONATE) 500 mg (27 mg elemental) Tab Take 500 mg by mouth daily. Active cyanocobalamin, vitamin B-12, 100 MCG tablet Take 100 mcg by mouth daily. Active Medication-Free Text Take 1 capsule by mouth daily. Digestive Enzyme with probiotic Active scopolamine (TRANSDERM-SCOP ) 1 mg over [address] 1 patch onto the skin every third day. Active progesterone (PROMETRIUM) 100 mg capsule Take 100 mg by mouth daily. Active estradioL (ESTRACE) 1 MG tablet Take 1 mg by mouth daily. Active docusate sodium (COLACE) 100 MG capsule Take 1 capsule (100 mg total) by mouth 2 (two) times a day. 60 capsule 6 5 Active oxyCODONE 5 MG immediate release tablet Take 1 tablet (5 mg total) by mouth every 4 (four) hours as needed for pain (specific location in comments). Partial fill ok 20 tablet 5 Active tiZANidine (ZANAFLEX) 4 MG capsule Take 4 mg by mouth every 6 (six) hours as needed. 03/28/20 25 Discontinu ed(No longer taking) pregabalin (LYRICA) 25 MG capsuleIndicati ons:Cervical stenosis of spine,Fibromyal hermila Take 1 capsule (25 mg total) by mouth 2 (two) times a day. 30 capsule 2 9 03/28/20 25 Discontinu ed(No longer taking) Active Problems Problem Noted Date Diagnosed Date Anxiety 04/10/2025 Asthma 04/10/2025 PONV (postoperative nausea and vomiting) 025 Calculus of gallbladder with out cholecystitis without obstruction 03/28/2025 Assessment & Plan (03/28/2025 4:36 PM EDT): This is a 59-year-old woman who likely had biliary colic about a week ago which has now resolved. She has been on a low-fat diet. She did have AST and ALT and alkaline phosphatase which were elevated on the day she was in the emergency department and remained elevated 2 days later. We will order repeat LFTs. I have discussed laparoscopic cholecystectomy in detail including risk benefits and alternatives with the patient and she would like to proceed with laparoscopic cholecystectomy so she can get back to her regular eating plan. The patient also was on Wegovy for weight loss and has lost 60 pounds and is interested in getting back to use of this medication because she does not want to put the weight back on. The patient will stay off Wegovy for a week following the procedure. She was told she must avoid all heavy lifting greater than 5 to 10 pounds for the first 2 weeks after surgery and greater than 15 pounds for another 2 weeks to equal 4 weeks of lifting restrictions. She will follow-up with us 2 weeks following the procedure. Cervical stenosis of spine 06/23/2019 Assessment & Plan (06/23/2019 9:28 PM EST): Close follow-up with [facility] as scheduled. Gentle massage versus acupuncture versus gentle chiropractic or a combination of them. If symptoms not improving or worsening may need to consider neurosurgical consult. Hypertension 06/23/2019 Assessment & Plan (06/23/2019 9:27 PM EST): Continue current antihypertensive regimen as prescribed. Avoid added salt in the diet. Aim at BP= 120/80 mmHg. Raynaud's disease without gangrene 06/23/2019 Assessment & Plan (06/23/2019 9:27 PM EST): Keep warm, dress in layers. Optimize stress management strategies. Avoid vasoconstrictors in OTC products for cold/flu and sinus. Chronic fatigue 06/23/2019 Assessment & Plan (06/23/2019 9:39 PM EST): Sleep hygiene. Proper hydration. Well-balanced nutritionally diet. Regular exercise routine. Avoid sick contacts, falls and injuries. Keep regular engagement in hobbies/favorite activities. Follow age-appropriate screenings and preventive strategies. Moderate episode of recurrent major depressive d isorder 06/23/2019 Assessment & Plan (06/23/2019 9:38 PM EST): I suggested her to get personal psychotherapist although she reports that it did not help her much in the past. She was interested in trying magnetic field therapy towards her brain but it is not covered by her insurance. She is quite upset about multiple antidepressants intolerances/allergies and severe secondary depression due to her chronic pain that became debilitating since March 2019. I have spent several minutes explaining to her that helping chronic pain and depression requires multiple modalities and may not be completely successful. Since she is sensitive to prescription medication she may need to employ nonpharmacologic measures such as regular relaxation, meditation, positive imagery, CBT, DNRS etc. Dry mouth 06/23/2019 Assessment & Plan (06/23/2019 9:29 PM EST): Keep well-hydrated. Avoid spicy and acidic foods. Diligent mouth hygiene. Regular dental checkups. Fibromyalgia 06/23/2019 Assessment & Plan (06/23/2019 9:34 PM EST): We discussed the diagnosis of fibromyalgia, its natural history, and treatment. Specifically, we discussed that treatment requires many interventions and recognition that we are often unable to get patients completely pain free. Management of fibromyalgia requires patient engagement to address any underlying depression, anxiety, or sleep disorder. Further, patients are encouraged to engage in regular physical activity. Some studies have suggested that Dae Chi is effective. Other physical activity may including water-based aerobics, regular walking, biking, gentle yoga, Pilates etc. In terms of pharmacotherapy, there are many options, including tricyclic antidepressants, duloxetine, gabapentin or pregabalin, and cyclobenzaprine as well as other similar medications to those listed. In this case, the patient might try low-dose of Lyrica-a first FDA approved medication for fibromyalgia. I've provided her with a pamphlet on its side effects along with pamphlet on fibromyalgia and available resources via websites. She is encouraged to read book written by Dr Eric Madison Full catastrophe living versus Wherever you go there you are addressing management strategies for patients with fibromyalgia utilizing mindfulness approach. She recalled that she was already offered similar advice few years ago but she could not afford to go for several weeks retreat to master it. Encounters Date Type Department Care Team Description 04/13/2025 Telephone [facility] [address] [place] [address] Jerardo Painting CNP Post-op (Bleeding after cholecystectomy) 04/12/2025 11:41 AM EDT - 04/12/2025 1:22 PM EDT Surgery OR Admitting Dept - Virtual Department [address] [place] [id number] Paula Suggs MD LAPAROSCOPIC CHOLECYSTECTOMY 04/12/2025 11:41 AM EDT Anesthesia Event OR Admitting Dept - Virtual Department [address] [place] [id number] Evaristo Morgan MD 04/12/2025 9:49 AM EDT - 04/12/2025 3:05 PM EDT Hospital Encounter OR Admitting Dept - Virtual Department [address] [place] [address] Paula Suggs MD Discharge Disposition: Home or Self Care 04/12/2025 Procedure Pass OR Admitting Dept - Virtual Department [address] [place] [address] 04/11/2025 8:30 AM EDT Pre-Admission Testing Pre Procedure Evaluation [address] [place] [address] Paula Suggs MD 04/01/2025 2:39 PM EDT - 04/01/2025 11:59 PM EDT Hospital Encounter [facility] [address] [place] [address] [place] [address] Paula Suggs MD Discharge Disposition: Home or Self Care 03/28/2025 4:15 PM EDT Office Visit [facility] [address] [place] [address] Paula Suggs MD Calculus of gallbladder without cholecystitis without obstruction (Primary Dx) 03/23/2025 1:23 PM EDT - 03/23/2025 11:59 PM EDT Hospital Encounter [facility] [address] [place] [address] Winnie Butler PA-C Discharge Disposition: Home or Self Care 03/23/[address] [facility] Emergency [address] [place] [address] Winnie Butler PA-C 03/23/2025 Orders Only [facility] [address] [place] [address] Melida Bower, YULIA Elevated LFTs (Primary Dx) 03/22/2025 Telephone [facility] [address] [place] [address] Unknown, Unknown, MD Follow-up 03/21/2025 3:15 PM EDT Ancillary Procedure [facility], Ultrasound [address] [address] Winnie Butler PA-C 03/21/2025 1:47 PM EDT - 03/21/2025 6:20 PM EDT Emergency [facility] Emergency [address] [place] [address] Discharge Disposition: Home or Self Care 03/21/2025 Procedure Pass [facility], Ct Scan - [address] [address] from Last 3 Months Family History Medical History Relation Comments Epilepsy Brother Bladder Cancer Father Prostate cancer Father Breast cancer Mother Breast cancer Sister 1 Alcohol abuse Sister 2 Relation Status Comments Brother Alive Father Mother Alive Sister 1 Alive Sister 2 Alive Social History Tobacco Use Types Packs/Day Years Used Date Smoking Tobacco: Former Cigarettes Q uit: 1983 Smokeless Tobacco: Never Tobacco Cessation:Counseling Given: Not Answered Alcohol Use Standard Drinks/Week Comments Never 0 [...] your housing situation today? I have conchis colbert 03/21/2025 How many times have you move [...] on file Sexual Orientation Not on file Last Filed Vital Signs Vital Sign Reading Time Taken Comments Blood Pressure 121/66 04/12/2025 1:45 PM EDT Pulse 58 04/12/2025 1:45 PM EDT Temperature 36 C (96.8 F) 04/12/2025 1:45 PM EDT Respiratory Rate 16 04/12/2025 1:45 PM EDT Oxygen Saturation 100% 04/12/2025 1:45 PM EDT Inhaled Oxygen Concentration - - Weight 62.6 kg (138 lb) 03/31/2025 2:09 PM EDT Height 170.2 cm (5' 7 ) 03/31/2025 2:09 PM EDT Body Mass Index 21.61 03/31/2025 2:09 PM EDT Plan of Treatment Upcoming Encounters Date Type Department Care Team (Late st Contact Info) Description 05/03/2025 11:00 AM EDT [facility] [address] [place] [address] Jerardo Painting, CONCRETE PIPE MACHINE OPERATOR [address] [facility], [address]nd [place] [address] [email or web address] Health Maintenance Due Date Last Done Comments LIPID PANEL 1965 DEPRESSION SCREENING 1977 HEPATITIS C SCREENING 1983 HIV ONE-TIME SCREENING (18-65 YEARS) 1983 MAMMOGRAM 2005 COLOGUARD 2010 COLONOSCOPY 2010 COLORECTAL CANCER SCREENING 2010 FIT TEST 2010 FOBT 2010 SIGMOIDOSCOPY 2010 VIRTUAL COLONOSCOPY 2010 RSV VACCINE (1 - Risk 50-74 years 1-dose series) 2015 PNEUMOCOCCAL VACCINES (50+ years) (2 of 2 - PCV) 04/21/2020 04/21/2019 INFLUENZA VACCINE (#1) 2025 , 04/18/2023, 05/31/2022, Additional history exists COVID-19 VACCINE ( season) 2025 04/18/2023, 04/18/2023, 05/31/2022, Additional history exists BLOOD PRESSURE 09/25/2025 03/28/2025 PAP SMEAR 11/06/2025 11/06/2022, 07/07/2019 POTASSIUM LEVEL 03/23/2026 03/23/2025, 03/21/2025 SMOKING Hx and SMOKELESS TOBACCO SCREENING 03/31/2026 03/31/2025 Adult Td,Tdap Booster 03/26/2034 03/26/2024 , 02/10/2019, 10/07/2007, Additional history exists ZOSTER VACCINES Completed 09/06/2022, 07/04/2022 HEPATITIS A VACCINES Aged Out No long er eligible based on patient's age to complete this topic HIB VACCINES Aged Out No longer eligi ble based on patient's age to complete this topic MENINGOCOCCAL VACCINES (ACWY) Aged Out No longer eligible based on patient's age to complete this topic MENINGOCOCCAL VACCINES (B) Aged Out N o longer eligible based on patient's age to complete this topic Medical Devices Implanted Type Area Decal Maker Device Identifier Shelf Expiration Date Model / Serial / Lot Breast Breast Bilateral: Breast Procedures Procedure Name Priority Date/Time Associated Diagnosis Comments AIRWAY PLACEMENT Routine 04/12/2025 11:47 AM EDT MT LAP,CHOLECYSTECTOMY 04/12/2025 11:41 AM EDT Calculus of gallbladder without cholecystitis without obstruction Special Needs Suction Direct Care Professional SP ANATOMIC PATHOLOGY Routine 04/12/2025 12:00 AM EDT LFTS (HEPATIC PANEL) Routine 04/01/2025 2:40 PM EDT Calculus of gallbladder without cholecystitis without obstruction COMPREHENSIVE METABOLIC PANEL Routine 03/23/2025 1:19 PM EDT LIPASE Routine 03/23/2025 1:[address] ABDOMEN/PELVIS WITH CONTRAST Routine 03/21/2025 4:29 PM EDT US BEDSIDE Routine 03/21/2025 3:12 PM EDT URINALYSIS W/REFLEX URINE CULTURE STAT 03/21/2025 11:27 AM EDT MAGNESIUM STAT 03/21/2025 11:15 AM EDT LIPASE STAT 03/21/2025 11:15 AM EDT LFTS (HEPATIC PANEL) STAT 03/21/2025 11:15 AM EDT BASIC METABOLIC PANEL STAT 03/21/2025 11:15 AM EDT CBC AND DIFFERENTIAL STAT 03/21/2025 11:15 AM EDT PAP TEST Routine 11/06/2022 12:00 AM EDT from Last 3 Months or Most Recently Relevant to Health Maintenance Results * ANES ETT DOUBLE LUMEN - AIRWAY LDA (04/12/2025 11:47 AM EDT) Narrative Colin Fuentes CRNA - 04/12/2025 11:47 AM EDT Colin Fuentes CRNA 04/12/2025 11:50 AM Airway Placement Procedure Note: Patient was not difficult to intubate. Procedure performed by: fellow/resident/ROTO GRAVURE PRESS OPERATOR Anesthesiologist: Evaristo Morgan MD Fellow/Resident/ROTO GRAVURE PRESS OPERATOR: Colin Fuentes CRNA Airway procedure initiated at:04/12/2025 11:47 AM and ended at. Personal Protective Equipment: Mask: surgical mask Gloves: gloves Mask Ventilation: Quality: easy Airway Placement: Technique: direct laryngoscopy Rapid sequence induction: no Details: Blade type: Mac Blade size: 3 Direct view: grade 1 Number of attempts: 1 ETT type: cuffed ETT size: 7.0 ETT depth at teeth: 22 ETT cuff inflation volume: 5 Tube position confirmed by: bilateral breath sounds and EtCO2 Outcomes: Evidence of dental injury? no Complications observed? no us Evaristo Morgan MD MT ANESTHESIA Final Re sult * Anatomic Pathology (04/12/2025 12:00 AM EDT) 04/12/2025 04/12/2025 1:5 2 PM EDT Narrative SEE NARRATIVE - 04/13/2025 2:59 PM EDT [address] [address] Repairer: Alejandro Romano MD Surgical Pathology Report FINAL PATHOLOGIC DIAGNOSIS: GALLBLADDER CHOLECYSTECTOMY: Focal cholesterolosis and cholelithiasis. Electronically Signed Out By Alejandro Romano MD By his/her signature above, the pathologist listed as making the Final Diagnosis certifies that he/she has personally reviewed this case and confirmed or corrected the diagnosis. CLINICAL HISTORY Calculus of gallbladder without cholecystitis without obstruction [K80.20] SPECIMENS SUBMITTED: A: GALLBLADDER CHOLECYSTECTOMY GROSS DESCRIPTION GALLBLADDER CHOLECYSTECTOMY: Received in formalin is a 9.8 x 3.7 x 3.7 cm intact gallbladder. The surface is smooth to focally cauterized and rabago-pink. The specimen is opened to reveal approximately 40 cc of bile admixed with a 6.1 x 2.0 x 0.7 cm aggregate of bosselated, rabago-yellow choleliths varying in maximum diameter from 0.1 to 0.5 cm. The mucosa is bile-stained, finely granular and rabago-red. The wall averages 0.2 cm in thickness. The segment of cystic duct received varies in diameter from 0.2-0.3 cm. Chief Projectionist sections are submitted in a single cassette A1. Grossed by: EARNESTINE Guillen, RENE([facility]) [id number] 04/12/2025 Grossing Staff: [id number] Patient Name: JAILYN JOVEL : 1965 (Age: 60) Sex: F Institution: [facility] Date of Operation: 04/12/2025 Date of Reported: 04/13/2025 14:59 Results To: Paula Maloney NP Paula Suggs MD PATHOLOGY ORDERABLES Final Result SEE NARRATIVE * (ABNORMAL) LFTs (hepatic panel) (04/01/2025 2:40 PM EDT) Only the most recent of2 resultswithin the time period is included. ALKALINE PHOSPHATASE 118(H) 39 - 117 U/L [facility] TOTAL BILIRUBIN 0.7 0.0 - 1.2 mg/dL [facility] DIRECT BILIRUBIN 0.2 0.0 - 0.2 mg/dL [facility] Bilirubin (Indirect) 0.5 0 - 1.5 mg/dL [facility] AST 30 0 - 37 U/L [facility] ALT 33 0 - 40 U/L [facility] TOTAL PROTEIN 7.8 6.5 - 8.0 g/dL [facility] ALBUMIN 4.5 3.9 - 4.8 g/dL [facility] GLOBULIN 3.3 1 - 4.8 g/dL [facility] A/G Ratio 1.36 1.00 - 4.80 RATIO [facility] Blood 04/01/2025 2:40 PM EDT 04/01/2025 2:45 PM EDT us Paula Suggs MD LAB BLOOD ORDERABLES Final Result [facility] [address] [place] [address] * (ABNORMAL) Comprehensive metabolic panel (03/23/2025 1:19 PM EDT) SODIUM 136 133 - 146 mmol/L [facility] POTASSIUM 3.9 3.3 - 5.1 mmol/L [facility] CHLORIDE 99 96 - 108 mmol/L [facility] CO2 23 21 - 35 mmol/L [facility] BUN 23(H) 6 - 19 mg/dL [facility] CREATININE 1.10 0.5 - 1.5 mg/dL [facility] GLUCOSE 86 70 - 99 mg/dL [facility] ALBUMIN 4.1 3.9 - 4.8 g/dL [facility] TOTAL PROTEIN 7.8 6.5 - 8.0 g/dL [facility] CALCIUM 9.4 8.4 - 10.3 mg/dL [facility] ALKALINE PHOSPHATASE 179(H) 39 - 117 U/L [facility] TOTAL BILIRUBIN 0.7 0.0 - 1.2 mg/dL [facility] AST 131(H) 0 - 37 U/L [facility] ALT 214(H) 0 - 40 U/L [facility] GLOBULIN 3.7 1 - 4.8 g/dL [facility] EGFR 58(L) >59 mL/min/1.7 3m2 [facility] Comment:Estimated glomerular filtration rate calculated using the CKD-EPI refit equation. ANION GAP 18 10 - 20 mmol/L [facility] Blood 03/23/2025 1:19 PM EDT 03/23/2025 1:22 PM EDT us Winnie LÓPEZ-Nasir LAB BLOOD ORDERABLES Final Result Performing Organization Address City/[facility]/ZIP Co de Phone Number [address] [address] * (ABNORMAL) Lipase (03/23/2025 1:19 PM EDT) Only the most recent of2 resultswithin the time period is included. LIPASE 83(H) 16 - 63 U/L [facility] Blood 03/23/2025 1:19 PM EDT 03/23/2025 1:22 PM EDT Winnie Lianne LÓPEZ-C LAB BLOOD ORDERABLES Final Result Performing Organization Address [facility]/ZIP Co de Phone Number [address] [address] * CT ABDOMEN/PELVIS WITH CONTRAST (03/21/2025 4:29 PM EDT) MGB IMG TRAVELERS' AID WORKER COMMENT Hyperemic appearance of the gallbladder mucosa with pericholecystic inflammatory stranding and small volume free fluid likely concerning for acute cholecystitis. No calcified cholelithiasis is noted. [facility] Anatomical Region Laterality Modality Abdomen, Pelvis Computed Tomogra phy 03/21/2025 5:10 PM EDT Impressions 03/21/2025 5:25 PM EDT Hyperemic appearance of the gallbladder mucosa with pericholecystic inflammatory stranding and small volume free fluid likely concerning for acute cholecystitis. No calcified cholelithiasis is noted. A clinically significant result was initiated on 03/21/2025 5:25 PM, Message ID [id number]. Narrative 03/21/2025 5:[address] ABDOMEN/PELVIS WITH CONTRAST Referring clinician's provided indication for this examination in Epic: * Abdominal pain, acute, nonlocalized; RUQ pain, temo? LFT abnormalities. TECHNIQUE: Multidetector-row CT of the abdomen and pelvis was performed after administration of intravenous contrast using tailored dose modulation techniques. Images were reconstructed in the axial, coronal, and sagittal planes. COMPARISON: None FINDINGS: Lower Chest: No consolidation or pleural effusions. Bibasilar atelectatic changes. Partially visualized bilateral breast prostheses. Liver: Subcentimeter hypodensities which are too small to characterize. Biliary: Hyperemic appearance of the gallbladder mucosa with pericholecystic inflammatory stranding and small volume free fluid. Hyperemic appearance of the gallbladder mucosa. No calcified cholelithiasis. No biliary ductal dilation. Spleen: No splenomegaly or focal lesions. Pancreas: No masses or ductal dilatation. Adrenal Glands: No nodules. Kidneys/Ureters: No solid masses, stones, or hydronephrosis. Subcentimeter hypodensities which are too small to characterize but likely to be cysts. Bowel: Appendix is seen in the right lower quadrant and is unremarkable. No evidence of obstruction. No focal inflammatory change. Submucosal fat deposition the colon likely reflecting prior chronic inflammation. Colonic diverticulosis without CT evidence of diverticulitis. Peritoneum/Retroperitoneum: No masses, pneumoperitoneum, or fluid. Lymph Nodes: No lymphadenopathy. Pelvic Organs/Bladder: No mass. Bladder is unremarkable for the degree of distention. Vessels: Aortic atherosclerosis. No aortic aneurysm. Bones/Soft Tissues: Multilevel degenerative change of the visualized spine. Grade 1 anterolisthesis of L5 on S1 with bilateral pars defects. Small fat-containing umbilical hernia. Procedure Note Stan Brito MD - 03/21/2025 CT ABDOMEN/PELVIS WITH CONTRAST Referring clinician's provided indication for this examination in Epic: *Abdominal pain, acute, nonlocalized; RUQ pain, temo? LFT abnormalities. TECHNIQUE: Multidetector-row CT of the abdomen and pelvis was performedafter administration of intravenous contrast using tailored dosemodulation techniques. Images were reconstructed in the axial, coronal,and sagittal planes. COMPARISON: None FINDINGS: Lower Chest: No consolidation or pleural effusions. Bibasilar atelectaticchanges. Partially visualized bilateral breast prostheses. Liver: Subcentimeter hypodensities which are too small to characterize. Biliary: Hyperemic appearance of the gallbladder mucosa withpericholecystic inflammatory stranding and small volume free fluid.Hyperemic appearance of the gallbladder mucosa. No calcifiedcholelithiasis. No biliary ductal dilation. Spleen: No splenomegaly or focal lesions. Pancreas: No masses or ductal dilatation. Adrenal Glands: No nodules. Kidneys/Ureters: No solid masses, stones, or hydronephrosis. Subcentimeterhypodensities which are too small to characterize but likely to becysts. Bowel: Appendix is seen in the right lower quadrant and is unremarkable.No evidence of obstruction. No focal inflammatory change. Submucosal fatdeposition the colon likely reflecting prior chronic inflammation. Colonicdiverticulosis without CT evidence of diverticulitis. Peritoneum/Retroperitoneum: No masses, pneumoperitoneum, or fluid. Lymph Nodes: No lymphadenopathy. Pelvic Organs/Bladder: No mass. Bladder is unremarkable for the degree ofdistention. Vessels: Aortic atherosclerosis. No aortic aneurysm. Bones/Soft Tissues: Multilevel degenerative change of the visualizedspine. Grade 1 anterolisthesis of L5 on S1 with bilateral pars defects.Small fat-containing umbilical hernia. IMPRESSION: Hyperemic appearance of the gallbladder mucosa with pericholecysticinflammatory stranding and small volume free fluid likely concerning foracute cholecystitis. No calcified cholelithiasis is noted. A clinically significant result was initiated on 03/21/2025 5:25 PM, MessageID [id number]. Winnie Butler PA-C IMG CT ABD/PELVIS Fin al Result * (ABNORMAL) Urinalysis w/reflex Urine Culture (03/21/2025 11:27 AM EDT) COLOR Yellow Yellow [facility] CLARITY Clear [facility] GLUCOSE Negative Negative [facility] BILI 1+(A) Negative [facility] KETONES Negative Negative [facility] SPECIFIC GRAVITY 1.010 1.005 - 1.030 [facility] BLOOD Negative Negative [facility] PH 6.5 5.0 - 8.0 [facility] Protein-UA Negative Negative [facility] NITRITE Negative Negative [facility] Leukocyte esterase, ur Negative Negative [facility] Urine (Urine) 03/21/2025 11: 27 AM EDT 03/21/2025 11:39 AM EDT us Del Gao MD URINE ORDERABLES Final Result [facility] [address] [place] [address] * (ABNORMAL) CBC and differential (03/21/2025 11:15 AM EDT) WBC 10.95 4.00 - 11.00 K/uL [facility] RBC 5.11 4.00 - 5.20 M/uL [facility] HGB 15.1 12.0 - 16.0 g/dL [facility] HCT 44.6 36.0 - 46.0 % [facility] PLT 328 150 - 450 K/uL [facility] MCV 87.3 80.0 - 100.0 fL [facility] MCH 29.5 27.0 - 31.0 pg [facility] MCHC 33.9 32.0 - 36.0 g/dL [facility] RDW 12.8 11.5 - 14.5 % [facility] MPV 11.5 8.4 - 12.0 fL [facility] NRBC 0.00 0.00 /100 WBCs [facility] ABSOLUTE NRBC 0.00 0.00 K/uL [facility] DIFF METHOD Auto [facility] NEUTS 82.3(H) 48.0 - 76.0 % [facility] LYMPHS 13.2(L) 18.0 - 41.0 % [facility] MONOS 3.3(L) 4.0 - 11.0 % [facility] EOS 0.5 0.0 - 5.0 % [facility] BASOS 0.3 0.0 - 1.5 % [facility] Granulocytes, immature (%) 0.4 0.0 - 0.9 % [facility] ABSOLUTE NEUTS 9.03(H) 1.92 - 7.60 K/uL [facility] ABSOLUTE LYMPHS 1.44 0.72 - 4.10 K/uL [facility] ABSOLUTE MONOS 0.36 0.16 - 1.10 K/uL [facility] ABSOLUTE EOS 0.05 0.00 - 0.50 K/uL [facility] ABSOLUTE BASOS 0.03 0.00 - 0.15 K/uL [facility] Granulocytes, immature 0.04 0.00 - 0.09 K/uL [facility] Blood 03/21/2025 11:1 5 AM EDT 03/21/2025 11:21 AM EDT us Del Gao MD LAB BLOOD ORDERABLES Final Resu lt Performing Organization Address City/[facility]/ZIP Co de Phone Number [address] [address] * Magnesium (03/21/2025 11:15 AM EDT) MAGNESIUM 2.2 1.6 - 2.6 mg/dL [facility] 03/21/2025 11:1 5 AM EDT 03/21/2025 11:21 AM EDT us Del Gao MD LAB BLOOD ORDERABLES Final Resu lt Performing Organization Address City/[facility] Co de Phone Number [address] [address] * (ABNORMAL) Basic metabolic panel (03/21/2025 11:15 AM EDT) SODIUM 136 133 - 146 mmol/L [facility] CHLORIDE 99 96 - 108 mmol/L [facility] POTASSIUM 3.2(L) 3.3 - 5.1 mmol/L [facility] CO2 26 21 - 35 mmol/L [facility] BUN 19 6 - 19 mg/dL [facility] CREATININE 0.80 0.5 - 1.5 mg/dL [facility] GLUCOSE 105(H) 70 - 99 mg/dL [facility] CALCIUM 9.4 8.4 - 10.3 mg/dL [facility] EGFR 85 >59 mL/min/1.7 3m2 [facility] Comment:Estimated glomerular filtration rate calculated using the CKD-EPI refit equation. ANION GAP 14 10 - 20 mmol/L [facility] Blood 03/21/2025 11:1 5 AM EDT 03/21/2025 11:21 AM EDT us Del Gao MD LAB BLOOD ORDERABLES Final Resu lt [address] [address] * Pap Test (11/06/2022 12:00 AM EDT) 11/06/2022 11/07/2022 9:1 1 AM EDT Narrative SEE NARRATIVE - 11/11/2022 2:27 PM EDT [address] [address] Repairer: Syeda Solo MD CONSTRUCTION COORDINATOR Cytology Report FINAL DIAGNOSIS A. PAP SMEAR (SUREPATH) CE: SPECIMEN ADEQUACY: Satisfactory for evaluation; transformation zone present. INTERPRETATION: NEGATIVE FOR INTRAEPITHELIAL LESION OR MALIGNANCY. Electronically Signed Out By: RYAN Hodge(ASCP) The Pap test is a screening test primarily for squamous cancers and precursors and has associated false-negative and false-positive results. New technologies such as liquid-based preparations may decrease but will not eliminate all false-negative results. Regular sampling and follow-up of unexplained clinical signs and symptoms are recommended to minimize false negative results. PROCEDURES/ADDENDA HPV Testing (Requested) Ordered Date: 11/07/2022 A. PAP SMEAR (SUREPATH) CE: Human Papilloma Virus Test NEGATIVE for high-risk Human Papilloma Virus types 16, 18, 45 and the Other high risk probe set (Includes 31, 33, 35, 39, 51, 52, 56, 58, 59, 66, 68) Note: Testing performed by [facility] HR-HPV analysis. Clinical correlation is advised. This HPV test was performed at [facility], [address] [place] [address]. This test has been FDA approved for [facility] cervical cytology specimens. The accuracy and precision of this test for all other specimen sources has been verified in the Cytopathology Laboratory of the [facility] and has not been cleared or approved by the U.S. Food and Drug Administration. Clinical correlation is advised. CLINICAL HISTORY Date of Last Menstrual Period: Not Provided Menstrual History: Post Menopausal Other Clinical Conditions: Screening Pap SPECIMEN SOURCE A: PAP SMEAR (SUREPATH) CE Patient Name: JAILYN JOVEL : 1965 (Age: 57) Sex: F Institution: [facility] Location: [facility] Date of Collection: 11/06/2022 Date of Reported: 11/11/2022 14:27 Results to: October Layne Nash October Layne Chamberlain SATURATOR CYTOLOGY ORDERAB LES Final Result SEE NARRATIVE from Last 3 Months or Most Recently Relevant to Health Maintenance Insurance [address] [place], [place] [address] [place], [place] [address] [place] [address] HMO O O O Advance Directives For more information, please contact: [phone] (9AM - 5PM [place], Friday-Friday) * Full Code (Latest Code Status on File) Date Activated Date Inactivated Comments 04/12/2025 10:03 AM Question Answer Comments Code Status Confirmed With: Patient 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 It is not the complete legal health record.[facility]
== END 2025-04-22 14:02 | disposition home or self-care (01) ==
PROVIDERS: PCP Internal Medicine; Visit Provider Physician Assistant
DX: L98.9 Disorder of the skin and subcutaneous tissue, unspecified (principal)

== ENCOUNTER 2025-04-22 13:53 | Outpatient (REF) | payer OTHER, SELFPAY ==
--- NOTE | ~2025-04-22 | US_ITS ---
EXAMINATION: US TRIPLEX LOWER EXTREMITY, LEFT CLINICAL INFORMATION: Pain, left lower extremity COMPARISON: None available. TECHNIQUE: Color-flow triplex imaging with spectral analysis and compression Doppler were performed on the left lower extremity. FINDINGS: Respiratory variation, normal compression and augmented flow are demonstrated in the interrogated left common femoral vein, superficial femoral vein, profunda femoral vein, popliteal vein and midcalf peroneal and posterior tibial venous segments . There is no Barros's cyst. US/US venous duplex LE IMPRESSION: No acute deep venous thrombosis interrogated veins, left lower extremity. Negative for DVT. Electronically signed by: Jeison Atkinson MD 04/22/2025 02:11 PM EDT
== END 2025-04-22 13:54 | disposition home or self-care (01) ==
LOC: HO.HMGCX 13:53
PROVIDERS: PCP Nurse Practitioner Adult Health; Visit Provider Physician Assistant
DX: L98.9 Disorder of the skin and subcutaneous tissue, unspecified (principal); M79.662 Pain in left lower leg
CPT/HCPCS: 93971

== ENCOUNTER → 2025-04-22 13:54 | Outpatient (BNV) | payer OTHER, SELFPAY | PROVIDERS: PCP Nurse Practitioner Adult Health; Visit Provider Radiology Diagnostic Radiology | DX: M79.662 Pain in left lower leg (principal) | CPT/HCPCS: 93971 ==